=== PATIENT | female | born 1965 | race Caucasian/White ===

== ENCOUNTER → 2024-07-02 | Outpatient (CLI) | payer MEDICAID, SELFPAY ==
--- NOTE | 2024-07-02 | XR_ITS ---
Examination: Retroperitoneal ultrasound, complete Technique: Multiple high resolution grayscale images of the retroperitoneum obtained, including kidneys and bladder. Exam date and time:July 02, 2024 1004 hours INDICATIONS: Acute renal insufficiency on laboratory examination performed one month ago FINDINGS: Right kidney 10.8 x 5.7 x 7.0 cm cortex 1.6 cm Midpole cyst 4 cm Multiple calculi, the largest in the mid kidney 8 mm Left kidney 13.3 x 4.7 x 5.3 cm cortex 1.8 cm Multiple renal cysts, the largest in the upper pole 3.5 cm Pole calculi, largest 7 mm Moderate renal parenchymal scar formation No hydronephrosis No bladder mass or bladder calculi Bladder prevoid volume 168 cc unable to void IMPRESSION: Bilateral renal cortical thinning Moderate bilateral renal parenchymal scar formation Bilateral subcentimeter renal calculi, no hydronephrosis
[2024-07-02 11:09] LABS: Collection Type, Urine Clean Catch
[2024-07-02 11:29] LABS: Basophils % (Auto) 1 % (0-2.5); Eosinophils # (Auto) 0.2 Thou/mm3 (0.0-0.5); Eosinophils % (Auto) 2 % (0-10); Hematocrit 27.6 % (36.0-46.0); Immature Granulocytes % (Auto) 1 % (0-0); Immature Granulocytes Auto 0.06 Thou/mm3 (0.00-0.00); Lymphocytes # (Auto) 2.3 Thou/mm3 (1.0-4.8); Lymphocytes % (Auto) 29 % (10-50); Mean Corpuscular HGB Conc 32.6 g/dl (31.0-37.0); Mean Corpuscular Hemoglobin 29.9 pg (25.0-35.0); Mean Corpuscular Volume 92 fL (80-100); Monocytes # (Auto) 0.6 Thou/mm3 (0.0-0.8); Monocytes % (Auto) 8 % (0-12); Neutrophils # (Auto) 4.7 Thou/mm3 (1.8-7.7); Neutrophils % (Auto) 60 % (37-80); Nucleated Red Blood Cell % 0 /100 WBC (0); Platelet Count 179 Thou/mm3 (140-440); RDW Standard Deviation 45.4 fL (36.4-46.3); Red Blood Count 3.01 Miln/mm3 (4.00-5.20); White Blood Count 7.8 Thou/mm3 (3.6-11.0)
[2024-07-02 11:41] LABS: Glucose Estimated Average 100 mg/dL (80-131); Hemoglobin A1C 5.1 % Hgb (4.8-6.0)
[2024-07-02 11:52] LABS: Bacteria,Urine Rare; Bilirubin,Urine Negative (Negative); Blood,Urine Negative (Negative); Clarity,Urine Clear (Clear/Hazy); Color,Urine Colorless (Lt Yel-Yel); Glucose, Urine Negative (Negative); Ketones,Urine Negative (Negative); Leukocyte Esterase,Urine Positive (Negative); Nitrite,Urine Negative (Negative); Protein,Urine Negative (Neg - Trace); RBC,Urine 2 /hpf (0-3); Specific Gravity,Urine 1.006 (1.001-1.035); Squamous Epithelial Cell,Urine 2 /hpf (0-5); Urobilinogen,Urine Negative mg/dL (0.0-1.0); WBC,Urine 6 /hpf (0-5)
[2024-07-02 12:01] LABS: Albumin, Serum 4.6 gm/dL (3.5-5.0); Anion Gap 10 (7-16); BUN/Creatinine Ratio 15 Ratio (12-20); Blood Urea Nitrogen 18 mg/dL (9-23); Calcium 9.5 mg/dL (8.3-10.6); Calcium (Corrected) 9.5 mg/dL (8.5-10.1); Carbon Dioxide 28.8 mMol/L (20.0-31.0); Chloride 97 mMol/L (98-107); Creatinine (Component) 1.2 mg/dL (0.6-1.3); Glucose 94 mg/dL (74-106); Osmolality,Calculated 273 (275-295); Phosphorous 3.2 mg/dL (2.4-5.1); Potassium 3.5 mMol/L (3.4-5.1); Sodium 136 mMol/L (136-145); eGFR 52 See Note
== END | disposition home or self-care (01) ==
LOC: CDIM 10:21 → COPL 10:22
PROVIDERS: PCP Internal Medicine; Referring Provider Internal Medicine; Visit Provider Radiology Diagnostic Radiology
DX: N17.9 Acute kidney failure, unspecified (principal); I10 Essential (primary) hypertension; N28.89 Other specified disorders of kidney and ureter; N20.0 Calculus of kidney
CPT/HCPCS: 36415; 76770; 80069; 81001; 83036; 85025

== ENCOUNTER 2024-07-29 08:45 | Day surgery (SDC) | payer MEDICAID, SELFPAY ==
[2024-07-29] VITALS (9 sets, daily range): BP systolic 117–144; BP diastolic 77–94; PULSE 72–82; RESP 18–21; TEMP 36.6–36.8; O2SAT 94–100; BMI 26.9
[2024-07-29] MEDS: DiphenhydrAMINE INJ 50 MG/ML VIAL 25 MG IV (10:50)
[2024-07-29] MEDS: fentaNYL CIT INJ 50 mCg/ML AMP 2ML (ASD USE ONLY) IV (10:50)
[2024-07-29] MEDS: MIDAZOLAM INJ 1 MG/ML VIAL 2 ML (ASD USE ONLY) 2 MG IV (10:55)
== END 2024-07-29 11:40 | disposition home or self-care (01) ==
PROVIDERS: PCP Nurse Practitioner Family; Referring Provider Internal Medicine Gastroenterology; Visit Provider Internal Medicine Gastroenterology
PROC: (CPT 43239; principal; 2024-07-29 10:45)
DX: K29.61 Other gastritis with bleeding (principal); K22.89 Other specified disease of esophagus; K57.91 Diverticulosis of intestine, part unspecified, without perforation or abscess with bleeding; K64.8 Other hemorrhoids
CPT/HCPCS: 43239; A4649; J1200; J2250; J3010

== ENCOUNTER 2024-08-05 07:30 | Day surgery (SDC) | payer MEDICAID, SELFPAY ==
[2024-08-04 14:07] VITALS: BMI 27.1
[2024-08-05] VITALS (12 sets, daily range): BP systolic 106–147; BP diastolic 70–92; PULSE 79–101; RESP 10–20; TEMP 36.7; O2SAT 95–100; BMI 26.6
[2024-08-05] MEDS: SODIUM CHLORIDE 0.9% 50 ML 100 ML IV (08:35)
[2024-08-05] MEDS: DiphenhydrAMINE INJ 50 MG/ML VIAL 25 MG IV (08:46)
[2024-08-05] MEDS: fentaNYL CIT INJ 50 mCg/ML AMP 2ML (ASD USE ONLY) IV (08:54)
[2024-08-05] MEDS: MIDAZOLAM INJ 1 MG/ML VIAL 2 ML (ASD USE ONLY) 2 MG IV (08:56)
--- NOTE | 2024-08-05 09:46 | SUR.PHASEII ---
0944 Pt more awake and alert. Denies pain or N/V. Abd remains soft. Kiki PO fluids.
--- NOTE | 2024-08-05 10:23 | SUR.PHASEII ---
1009 Pt assessment unchanged. No complaints. Amb remains soft. Amb with steady gait. Able to dress self. Pt and family given dc instructions. Both state understanding. Pt meets dc criteria-to home.
--- NOTE | 2024-08-05 10:42 | SUR.PHASEII ---
Late entry-Pt states her prescription for Prilosec, from visit on 07-29-24, was not phoned into pharmacy. Spoke with Dr Tang. Prescription for Prilosec 40mg # 60, 1 po BID-2 refills, phoned into [facility] on [address]. Pt and family aware.
== END 2024-08-05 10:09 | disposition home or self-care (01) ==
PROVIDERS: PCP Nurse Practitioner Family; Referring Provider Internal Medicine Gastroenterology; Visit Provider Internal Medicine Gastroenterology
PROC: 0DBE8ZX Excision of Large Intestine, Via Natural or Artificial Opening Endoscopic, Diagnostic (ICD-10-PCS; CPT 45380; principal; 2024-08-05 07:30)
DX: K64.8 Other hemorrhoids (principal); K57.31 Diverticulosis of large intestine without perforation or abscess with bleeding
CPT/HCPCS: 45380; A4649; J1200; J2250; J3010